=== PATIENT | female | born 1955 | race African-American/Black ===

== ENCOUNTER 2020-12-12 04:06 | Inpatient (IN) | payer MEDICARE, OTHER ==
[2020-12-12 07:16] LABS: BASO % 1.2 % (0-2.0); HEMATOCRIT 33.8 % (32.4-45.2); HEMOGLOBIN 11.3 GM/dL (10.7-15.3); MCH 26.9 pg (25.7-33.7); MCHC 33.3 g/dl (32.0-36.0); MEAN CELL VOLUME 80.9 fl (80-96); MEAN PLT VOLUME 7.6 fl (7.5-11.1); MONO % 10.2 % (3.8-10.2); NEUT % 62.6 % (42.8-82.8); PLATELET COUNT 366 10^3/uL (134-434); RBC 4.18 M/mm3 (3.60-5.2); RDW 15.2 % (11.6-15.6); WHITE BLOOD COUNT 4.2 K/mm3 (4.0-10.0)
[2020-12-12] MEDS ORDERED: AMPICILLIN NA/SULBACTAM NA 3 GM in SODIUM CHLORIDE 100 ML IVPB ONE (07:16)
[2020-12-12 07:21] LABS: INR 0.98 (0.83-1.09); PROTHROMBIN TIME (PATIENT) 11.9 SEC (9.7-13.0)
[2020-12-12 07:24] LABS: ACTIVATED PTT 29.3 SECONDS (25.2-36.5)
[2020-12-12 07:32] LABS: CHLORIDE 106 mmol/L (98-107); SODIUM 140 mmol/L (136-145)
[2020-12-12 07:34] LABS: ALBUMIN 3.4 g/dl (3.4-5.0); ANION GAP 6 MMOL/L (8-16); BLOOD UREA NITROGEN 8.3 mg/dL (7-18); CALCIUM 9.1 mg/dL (8.5-10.1); CO2 29 mmol/L (21-32); GLUCOSE,RANDOM 69 mg/dL (74-106)
[2020-12-12 07:37] LABS: CREATININE 0.9 mg/dL (0.55-1.3); SGOT/AST 27 U/L (15-37); SGPT/ALT 25 U/L (13-61)
[2020-12-12 07:39] LABS: BILIRUBIN,TOTAL 0.6 mg/dL (0.2-1); TOT PROT 9.4 g/dl (6.4-8.2)
[2020-12-12 07:40] LABS: ALK PHOS 89 U/L (45-117)
[2020-12-12] MEDS ORDERED: DEXTROSE 10%-WATER 500 ML INFUS.BAG IV ONE (08:33)
[2020-12-12] MEDS: DEXTROSE 5%-0.45% SALINE 1,000 ML IV SCH (18:59)
[2020-12-12] MEDS ORDERED: PANTOPRAZOLE SODIUM 40 MG VIAL IVPUSH SCH (22:00)
[2020-12-12] MEDS: PANTOPRAZOLE SODIUM 40 MG VIAL IVPB SCH (22:22)
[2020-12-13 09:04] LABS: BASO % 1.5 % (0-2.0); EOS % 3.8 % (0-4.5); HEMATOCRIT 34.2 % (32.4-45.2); HEMOGLOBIN 11.3 GM/dL (10.7-15.3); LYMPH % 36.7 % (8-40); MCH 26.8 pg (25.7-33.7); MCHC 32.9 g/dl (32.0-36.0); MEAN CELL VOLUME 81.3 fl (80-96); MEAN PLT VOLUME 7.6 fl (7.5-11.1); MONO % 11.3 % (3.8-10.2); NEUT % 46.7 % (42.8-82.8); PLATELET COUNT 319 10^3/uL (134-434); RBC 4.21 M/mm3 (3.60-5.2); RDW 15.3 % (11.6-15.6); WHITE BLOOD COUNT 3.2 K/mm3 (4.0-10.0)
[2020-12-13 09:28] LABS: BLOOD UREA NITROGEN 7.6 mg/dL (7-18); CALCIUM 8.3 mg/dL (8.5-10.1)
[2020-12-13 09:29] LABS: CREATININE 0.9 mg/dL (0.55-1.3)
[2020-12-13 09:30] LABS: PHOSPHOROUS 3.2 mg/dL (2.5-4.9)
[2020-12-13 09:31] LABS: BILIRUBIN,TOTAL 0.6 mg/dL (0.2-1); TOT PROT 7.9 g/dl (6.4-8.2)
[2020-12-13 09:41] LABS: ALBUMIN 2.6 g/dl (3.4-5.0)
[2020-12-13] MEDS: PANTOPRAZOLE SODIUM 40 MG VIAL IVPB SCH ×2 (11:00→21:12)
[2020-12-13] MEDS: DEXTROSE 5%-0.45% SALINE 1,000 ML IV SCH (11:06)
[2020-12-14 08:29] LABS: BASO % 1.3 % (0-2.0); EOS % 2.6 % (0-4.5); HEMATOCRIT 32.5 % (32.4-45.2); HEMOGLOBIN 10.6 GM/dL (10.7-15.3); LYMPH % 23.9 % (8-40); MCH 26.6 pg (25.7-33.7); MCHC 32.5 g/dl (32.0-36.0); MEAN CELL VOLUME 81.6 fl (80-96); MEAN PLT VOLUME 7.9 fl (7.5-11.1); NEUT % 57.2 % (42.8-82.8); PLATELET COUNT 278 10^3/uL (134-434); RBC 3.98 M/mm3 (3.60-5.2); RDW 15.2 % (11.6-15.6); WHITE BLOOD COUNT 3.4 K/mm3 (4.0-10.0)
[2020-12-14 08:46] LABS: CHLORIDE 108 mmol/L (98-107); SODIUM 134 mmol/L (136-145)
[2020-12-14 08:52] LABS: ALBUMIN 2.5 g/dl (3.4-5.0); BLOOD UREA NITROGEN 7.7 mg/dL (7-18); CALCIUM 8.4 mg/dL (8.5-10.1); CO2 23 mmol/L (21-32); GLUCOSE,RANDOM 65 mg/dL (74-106)
[2020-12-14 08:53] LABS: MAGNESIUM 2.1 mg/dL (1.8-2.4)
[2020-12-14 08:55] LABS: CREATININE 0.9 mg/dL (0.55-1.3); PHOSPHOROUS 3.6 mg/dL (2.5-4.9); SGPT/ALT 31 U/L (13-61)
[2020-12-14 08:56] LABS: BILIRUBIN,TOTAL 0.5 mg/dL (0.2-1); SGOT/AST 92 U/L (15-37); TOT PROT 8.2 g/dl (6.4-8.2)
[2020-12-14 08:57] LABS: ALK PHOS 71 U/L (45-117)
[2020-12-14 09:00] LABS: ANION GAP 2 MMOL/L (8-16)
[2020-12-14] MEDS: PANTOPRAZOLE SODIUM 40 MG VIAL IVPB SCH ×2 (09:37→21:52)
[2020-12-14] MEDS: DEXTROSE 5%-0.45% SALINE 1,000 ML IV SCH (09:44)
[2020-12-14 12:24] LABS: CALCIUM 8.6 mg/dL (8.5-10.1)
[2020-12-14 12:25] LABS: ALBUMIN 2.5 g/dl (3.4-5.0); BLOOD UREA NITROGEN 7.3 mg/dL (7-18)
[2020-12-14 12:28] LABS: CREATININE 0.9 mg/dL (0.55-1.3)
[2020-12-14 12:29] LABS: BILIRUBIN,TOTAL 0.4 mg/dL (0.2-1); TOT PROT 7.2 g/dl (6.4-8.2)
[2020-12-14 13:30] VITALS: BMI 19.4
[2020-12-15] MEDS: DEXTROSE 5%-0.45% SALINE 1,000 ML IV SCH ×2 (04:41→23:52)
[2020-12-15 08:31] LABS: BASO % 0.8 % (0-2.0); EOS % 1.7 % (0-4.5); HEMATOCRIT 30.9 % (32.4-45.2); HEMOGLOBIN 10.3 GM/dL (10.7-15.3); LYMPH % 25.9 % (8-40); MCHC 33.3 g/dl (32.0-36.0); MEAN CELL VOLUME 81.1 fl (80-96); MEAN PLT VOLUME 7.7 fl (7.5-11.1); MONO % 11.2 % (3.8-10.2); NEUT % 60.4 % (42.8-82.8); PLATELET COUNT 321 10^3/uL (134-434); RBC 3.81 M/mm3 (3.60-5.2); RDW 14.9 % (11.6-15.6); WHITE BLOOD COUNT 4.2 K/mm3 (4.0-10.0)
[2020-12-15 08:50] LABS: CALCIUM 8.4 mg/dL (8.5-10.1)
[2020-12-15 08:51] LABS: ALBUMIN 2.5 g/dl (3.4-5.0); BLOOD UREA NITROGEN 5.4 mg/dL (7-18)
[2020-12-15 08:53] LABS: CREATININE 0.8 mg/dL (0.55-1.3)
[2020-12-15 08:54] LABS: PHOSPHOROUS 2.6 mg/dL (2.5-4.9)
[2020-12-15 08:55] LABS: BILIRUBIN,TOTAL 0.6 mg/dL (0.2-1); TOT PROT 7.3 g/dl (6.4-8.2)
[2020-12-15] MEDS: PANTOPRAZOLE SODIUM 40 MG VIAL IVPB SCH ×2 (09:45→23:00)
[2020-12-16 05:31] VITALS: BP 109/65; PULSE 60; TEMP 98.6
[2020-12-16 07:45] LABS: BASO % 0.8 % (0-2.0); EOS % 3.4 % (0-4.5); HEMATOCRIT 28.9 % (32.4-45.2); HEMOGLOBIN 9.5 GM/dL (10.7-15.3); LYMPH % 31.3 % (8-40); MCH 26.5 pg (25.7-33.7); MCHC 32.8 g/dl (32.0-36.0); MEAN CELL VOLUME 80.9 fl (80-96); MEAN PLT VOLUME 7.7 fl (7.5-11.1); MONO % 19.7 % (3.8-10.2); NEUT % 44.8 % (42.8-82.8); PLATELET COUNT 300 10^3/uL (134-434); RBC 3.57 M/mm3 (3.60-5.2); RDW 15.5 % (11.6-15.6); WHITE BLOOD COUNT 2.8 K/mm3 (4.0-10.0)
[2020-12-16 07:55] LABS: CALCIUM 8.3 mg/dL (8.5-10.1)
[2020-12-16 07:56] LABS: ALBUMIN 2.3 g/dl (3.4-5.0); BLOOD UREA NITROGEN 4.9 mg/dL (7-18); MAGNESIUM 1.9 mg/dL (1.8-2.4)
[2020-12-16 07:59] LABS: CREATININE 0.8 mg/dL (0.55-1.3); PHOSPHOROUS 3.2 mg/dL (2.5-4.9)
[2020-12-16 08:00] LABS: BILIRUBIN,TOTAL 0.5 mg/dL (0.2-1)
[2020-12-16 08:01] LABS: TOT PROT 6.9 g/dl (6.4-8.2)
[2020-12-16] MEDS: PANTOPRAZOLE SODIUM 40 MG VIAL IVPB SCH (09:40)
[2020-12-17] MEDS ORDERED: PANTOPRAZOLE SODIUM 40 MG VIAL IVPB SCH (10:00)
== END 2020-12-16 15:58 | disposition left against medical advice (07) | DRG 391 ==
LOC: JER 04:06 → JERBED 09:53 → OBSVTOIN 11:52 → J7W 15:19
PROVIDERS: ADMIT Internal Medicine
PROC: 0DB58ZX Excision of Esophagus, Via Natural or Artificial Opening Endoscopic, Diagnostic (ICD-10-PCS; principal; 2020-12-12 12:15)
DX: K22.2 Esophageal obstruction (principal); J69.0 Pneumonitis due to inhalation of food and vomit; K31.5 Obstruction of duodenum; K50.10 Crohn's disease of large intestine without complications; R13.19 Other dysphagia; K21.00 Gastro-esophageal reflux disease with esophagitis, without bleeding; K29.40 Chronic atrophic gastritis without bleeding
CPT/HCPCS: 36415; 70490-TC; 71250-TC; 80053; 82550; 82553; 83735; 84100; 84484; 85025; 85610; 85730; 86850; 86900; 86901; 88305-TC; 93005; 93010; 99285-25; C9803; G0378; U0003; U0005

== ENCOUNTER 2021-12-23 03:33 | Emergency (ER) | payer OTHER ==
[2021-12-23 03:51] VITALS: BMI 18.8
[2021-12-23] MEDS ORDERED: ACETAMINOPHEN 500 MG TABLET (FP) PO ONE (04:32)
[2021-12-23] MEDS ORDERED: ACETAMINOPHEN 325 MG TABLET (FP) ONE ×2 (04:33→04:50)
[2021-12-23] MEDS ORDERED: LIDOCAINE 5% TOPICAL PATCH ONE (04:44)
[2021-12-23] MEDS ORDERED: LIDOCAINE 5% TOPICAL PATCH TP ONE (04:50)
[2021-12-23 05:33] LABS: EPI CELLS 6 /uL (0-25.1); HYALINE CASTS 0 /uL (0-3.1); URINE APPEARANCE CLEAR; URINE BACTERIA 90 /uL (0-1359); URINE BILIRUBIN NEGATIVE (NEGATIVE); URINE COLOR YELLOW; URINE GLUCOSE (UA) NEGATIVE (NEGATIVE); URINE KETONE NEGATIVE (NEGATIVE); URINE LEUK ESTERASE 3+ (NEGATIVE); URINE NITRITE NEGATIVE (NEGATIVE); URINE PROTEIN NEGATIVE (NEGATIVE); URINE RBC 176 /uL (0-23.9); URINE UROBILINOGEN 0.2 mg/dL (0.2-1.0); URINE WBC 72 /uL (0-25.8)
[2021-12-23 07:24] VITALS: BP 158/75; PULSE 67; RESP 18; TEMP 97.8
[2021-12-23] MEDS ORDERED: LIDOCAINE PATCH REMOVAL MC SCH (22:00)
== END 2021-12-23 17:22 | disposition home or self-care (01) ==
LOC: JER 03:33
DX: M54.42 Lumbago with sciatica, left side (principal); N39.0 Urinary tract infection, site not specified
CPT/HCPCS: 72131-TC; 81003; 87086; 99285-25